=== PATIENT | female | born 1985 | race Caucasian/White ===

== ENCOUNTER 2016-11-25 19:57 | Emergency (ER) | payer SELFPAY ==
[2016-11-25 20:08] VITALS: BP 130/78; PULSE 73; TEMP 98.4; BMI 24.5
--- NOTE | 2016-11-25 20:29 | PDOC ---
[id number] Time Seen by Provider: 11/25/16 20:17 History Source: Patient Exam Limitations: No Limitations - History of Present Illness Initial Comments: 11/25/16 20:28 31 yr female c/o itching to vagina and burning with uriantion. Pt states she is on antibiotics for cystitis. small amount of white discharge noted today. no fever no abd pain or back pain . 11/25/16 20:38 Past History - Past Medical History Allergies/Adverse Reactions: Allergies Allergy/AdvReac Type Severity Reaction Status Date / Time No Known Allergies Allergy Verified 11/25/16 20:05 Home Medications: Ambulatory Orders NK [No Known Home Medication] 11/25/16 Asthma: No Cancer: No Cardiac Disorders: No Diabetes: No Disorders: Yes (cystitis) HTN: No Suicide Attempt (Hx): No Seizures: No Thyroid Disease: No - Immunization History Immunization Up to Date: Yes - Psycho/Social/Smoking Cessation Hx Anxiety: No Suicidal Ideation: No Smoking History: Never smoked Have you smoked in the past 12 months: No Number of Cigarettes Smoked Daily: 0 Hx Alcohol Use: No Drug/Substance Use Hx: No Substance Use Type: None Hx Substance Use Treatment: No *Physical Exam - Vital Signs Last Vital Signs Temp Pulse Resp BP Pulse Ox 98.4 F 73 18 130/78 97 11/25/16 20:06 11/25/16 20:06 11/25/16 20:06 11/25/16 20:06 11/25/16 20:06 - Physical Exam General Appearance: Yes: Nourished, Appropriately Dressed HEENT: positive: EOMI, MUKESH, Normal ENT Inspection, TMs Normal, Pharynx Normal Neck: positive: Supple. negative: Tender Respiratory/Chest: positive: Lungs Clear, Normal Breath Sounds Cardiovascular: positive: Regular Rhythm, Regular Rate Female Pelvic Exam: positive: discharge. negative: normal adnexa (white discharge no lesions ) Gastrointestinal/Abdominal: positive: Normal Bowel Sounds, Soft Lymphatic: negative: Adenopathy Musculoskeletal: positive: Normal Inspection Extremity: positive: Normal Capillary Refill, Normal Inspection, Normal Range of Motion Integumentary: positive: Normal Color, Dry, Warm Neurologic: positive: Fully Oriented, Alert, Normal Mood/Affect, Normal Response , Motor Strength 5/5 Medical Decision Making - Medical Decision Making 11/25/16 20:44 cc: vaginal itching and discharge will check urine , gc chalmaydia pt on antibiotcs for cystitis exam consistent with vaginal candidiasis will send culture treat with diflucan 11/29/16 08:25 *DC/Admit/Observation/Transfer Diagnosis at time of Disposition: Vaginal yeast infection - Discharge Dispostion Disposition: HOME Condition at time of disposition: Good - Patient Instructions Additional Instructions: drink pleanty of water eat 2-3 cups of yogurt a day avoid sexual intercourse until symptoms resolve follow with your software development specialist as needed if symptoms continue in 24 hrs then you can get over the counter Monistat-7 a cream for yeast infection
[2016-11-25] MEDS ORDERED: FLUCONAZOLE 50 MG TABLET PO ONE (20:37)
[2016-11-25 20:45] LABS: URINE APPEARANCE SLCLOUDY; URINE BILIRUBIN NEGATIVE (NEGATIVE); URINE BLOOD NEGATIVE (NEGATIVE); URINE COLOR YELLOW; URINE GLUCOSE (UA) NEGATIVE (NEGATIVE); URINE KETONE NEGATIVE (NEGATIVE); URINE LEUK ESTERASE NEGATIVE (NEGATIVE); URINE NITRITE NEGATIVE (NEGATIVE); URINE PROTEIN NEGATIVE (NEGATIVE); URINE UROBILINOGEN NEGATIVE E.U./dl (0.2-1.0)
== END 2016-11-25 21:05 | disposition home or self-care (01) ==
LOC: JERFT 19:57
DX: B37.3 Candidiasis of vulva and vagina (principal)
CPT/HCPCS: 36415; 81003; 84703; 87070; 87086; 87186; 87205; 87491; 87591; 99281-25

== ENCOUNTER 2018-11-16 22:12 | Emergency (ER) | payer SELFPAY ==
[2018-11-16 22:27] VITALS: BP 118/73; PULSE 97; TEMP 98.5; BMI 24.5
--- NOTE | 2018-11-16 22:41 | PDOC ---
History of Present Illness - General Chief Complaint: Cold Symptoms Stated Complaint: FEVER/COLD SYMPTOMS Time Seen by Provider: 11/16/18 22:36 - History of Present Illness Initial Comments: 11/16/18 22:38 33-year-old female presents for evaluation of cold-like symptoms along with fever chills night sweats cold-like symptoms for 1 month systemic symptoms for 2 days Past History - Past Medical History Allergies/Adverse Reactions: Allergies Allergy/AdvReac Type Severity Reaction Status Date / Time No Known Allergies Allergy Verified 11/25/16 20:05 Home Medications: Ambulatory Orders Amox-Tr/K Cl [Augmentin - 875Mg Tablet] 1 tab PO BID #20 tablet 11/16/18 Budesonide [Rhinocort Allergy] 1 spray NS ONCE #1 spray.pump 11/16/18 Asthma: No Cancer: No Cardiac Disorders: No CVA: No COPD: No CHF: No DVT: No Diabetes: No Disorders: Yes (cystitis) HTN: No Seizures: No Thyroid Disease: No - Surgical History Gastric Stapling: No - Immunization History Immunization Up to Date: Yes - Suicide/Smoking/Psychosocial Hx Smoking History: Never smoked Have you smoked in the past 12 months: No Number of Cigarettes Smoked Daily: 0 Information on smoking cessation initiated: No Hx Alcohol Use: No Drug/Substance Use Hx: No Substance Use Type: None Hx Substance Use Treatment: No Review of Systems - Review of Systems Constitutional: Yes: See HPI, Chills, Fever, Malaise, Night Sweats HEENTM: Yes: Nose Pain, Nose Congestion Respiratory: Yes: Cough *Physical Exam - Vital Signs Last Vital Signs Temp Pulse Resp BP Pulse Ox 98.5 F 97 H 20 118/73 100 11/16/18 22:24 11/16/18 22:24 11/16/18 22:24 11/16/18 22:24 11/16/18 22:24 - Physical Exam Comments: 11/16/18 22:39 HEAD: NC/AT tender frontal sinuses EYES: Conjuntiva clear Ears: Canals and TM's normal NOSE: Clear discharge and injected turbinates THROAT: Moist mucous membrances, oral pharanx clear, uvula midline NECK: Supple without adenopathy CARDIAC: S1 S2 LUNGS: CTA Full and Equal breath sounds ABDOMEN: Soft NT ND MS: Full ROM in all joints without edema NEUROLOGIC: No gross sensory or motor deficits, NVID SKIN: Normal color and temperature no lesions or rashes Moderate Sedation - Procedure Monitoring Vital Signs: Procedure Monitoring Vital Signs Temperature 98.5 F 11/16/18 22:24 Pulse Rate 97 H 11/16/18 22:24 Respiratory Rate 20 11/16/18 22:24 Blood Pressure 118/73 11/16/18 22:24 O2 Sat by Pulse Oximetry (%) 100 11/16/18 22:24 *DC/Admit/Observation/Transfer Diagnosis at time of Disposition: Sinusitis - Discharge Dispostion Disposition: HOME Condition at time of disposition: Stable Decision to Admit order: No - Prescriptions Prescriptions: Amox-Tr/K Cl [Augmentin - 875Mg Tablet] 1 tab PO BID #20 tablet Budesonide [Rhinocort Allergy] 1 spray NS ONCE #1 spray.pump - Referrals Referrals: Daniella Kirkpatrick MD [Primary Care Provider] - Panfilo Ellington MD [Staff Physician] - - Patient Instructions Printed Discharge Instructions: Sinusitis, DI for Sinusitis Additional Instructions: Return to the emergency room should symptoms worsen or go unresolved, follow-up with ear nose and throat doctor in 1-2 days for further evaluation and treatment options. Please take the antibiotics in the nasal spray as directed. Continue with Tylenol and Motrin for pain and fever. - Post Discharge Activity
== END 2018-11-16 22:45 | disposition home or self-care (01) ==
LOC: JERFT 22:12
DX: J32.8 Other chronic sinusitis (principal)
CPT/HCPCS: 99281-25

== ENCOUNTER 2018-11-22 21:46 | Emergency (ER) | payer SELFPAY ==
[2018-11-22 22:22] VITALS: BMI 28.3
--- NOTE | 2018-11-22 22:39 | PDOC ---
History of Present Illness <Cee Tse - Last Filed: 11/23/18 00:26> - General History Source: Patient Exam Limitations: No Limitations - History of Present Illness Initial Comments: 11/22/18 22:38 Patient is a 33 year old female with no pmhx c/o sorethroat, CARDONA, bodyache, joint pain, hot and cold chills, fatigue x 1 month. States the CARDONA are intermittent daily which 8/10 throbbing in the occiput which goes away with tylenol and motrin. Has body pain mostly in th joints and has hot and cold chills. She takes the temp it is 99-100. She was seen in the ED 8 days ago and was given antibx for sinusitis, but states her symptoms are still the same. Over the past 2 days the sore throat is worse and is having difficult swallowing. Last dose of Tylenol was 11 pm. PMD: Jolene PMHX: as above PSOCHX: neg cig, durg, etoh ALL: NKDA GENERAL/CONSTITUTIONAL: (+) fever or chills. (+) weakness. No weight change.] HEAD, EYES, EARS, NOSE AND THROAT: [No change in vision. No ear pain or discharge. (+) sore throat.] CARDIOVASCULAR: [No chest pain or shortness of breath.] RESPIRATORY: [No cough, wheezing, or hemoptysis.] GASTROINTESTINAL: [No nausea, vomiting, diarrhea or constipation. No rectal bleeding.] GENITOURINARY: [No dysuria, frequency, or change in urination.] MUSCULOSKELETAL: (+) joint or muscle swelling or pain. No neck or back pain.] SKIN AND BREASTS: [No rash or easy bruising.] NEUROLOGIC: (+) headache, (-) vertigo, loss of consciousness, or loss of sensation.] PSYCHIATRIC: [No depression or anxiety.] ENDOCRINE: [No increased thirst. No abnormal weight change.] HEMATOLOGIC/LYMPHATIC: [No anemia, easy bleeding, or history of blood clots.] ALLERGIC/IMMUNOLOGIC: [No hives or skin allergy. No latex allergy.] GENERAL: [The patient is awake, alert, and fully oriented, in mild distress.] HEAD: [Normal with no signs of trauma.] EYES: [Pupils equal, round and reactive to light, extraocular movements intact, sclera anicteric, conjunctiva clear.] ENT: [Ears normal, nares patent, oropharynx clear without exudates, no swelling Moist mucous membranes.] NECK: [Normal range of motion, supple without lymphadenopathy, JVD, or masses.] LUNGS: [Breath sounds equal, clear to auscultation bilaterally. No wheezes, and no crackles.] HEART: [Regular rate and rhythm, normal S1 and S2 without murmur, rub.] ABDOMEN: [Soft, nontender, normoactive bowel sounds. No guarding, no rebound. No masses.] EXTREMITIES: [Normal range of motion, no edema. No clubbing or cyanosis. No cords, erythema, or tenderness.] NEUROLOGICAL: [Cranial nerves II through XII grossly intact. Normal speech, normal gait.] PSYCH: [Normal mood, normal affect.] SKIN: [Warm, Dry, normal turgor, no rashes or lesions noted.] <Merna De - Last Filed: 11/23/18 05:38> - General Chief Complaint: Cold Symptoms Stated Complaint: THROAT PAIN/ FEVER Past History <Cee Tse - Last Filed: 11/23/18 00:26> - Past Medical History Asthma: No Cancer: No Cardiac Disorders: No CVA: No COPD: No CHF: No DVT: No Diabetes: No Disorders: Yes (cystitis) HTN: No Seizures: No Thyroid Disease: No - Surgical History Gastric Stapling: No - Immunization History Immunization Up to Date: Yes - Suicide/Smoking/Psychosocial Hx Smoking History: Never smoked Have you smoked in the past 12 months: No Number of Cigarettes Smoked Daily: 0 Information on smoking cessation initiated: No Hx Alcohol Use: No Drug/Substance Use Hx: No Substance Use Type: None Hx Substance Use Treatment: No <Merna eD - Last Filed: 11/23/18 05:38> - Past Medical History Allergies/Adverse Reactions: Allergies Allergy/AdvReac Type Severity Reaction Status Date / Time No Known Allergies Allergy Verified 11/25/16 20:05 Home Medications: Ambulatory Orders Amox-Tr/K Cl [Augmentin - 875Mg Tablet] 1 tab PO BID #20 tablet 11/16/18 Budesonide [Rhinocort Allergy] 1 spray NS ONCE #1 spray.pump 11/16/18 *Physical Exam - Vital Signs Last Vital Signs Temp Pulse Resp BP Pulse Ox 98.1 F 107 H 20 136/65 100 11/22/18 22:20 11/22/18 22:20 11/22/18 22:20 11/22/18 22:20 11/22/18 22:20 <Cee Tse - Last Filed: 11/23/18 00:26> - Vital Signs Last Vital Signs Temp Pulse Resp BP Pulse Ox 98.1 F 107 H 20 136/65 100 11/22/18 22:20 11/22/18 22:20 11/22/18 22:20 11/22/18 22:20 11/22/18 22:20 <Merna De - Last Filed: 11/23/18 05:38> Moderate Sedation - Procedure Monitoring Vital Signs: Procedure Monitoring Vital Signs Temperature 98.1 F 11/22/18 22:20 Pulse Rate 107 H 11/22/18 22:20 Respiratory Rate 20 11/22/18 22:20 Blood Pressure 136/65 11/22/18 22:20 O2 Sat by Pulse Oximetry (%) 100 11/22/18 22:20 <Cee Tse - Last Filed: 11/23/18 00:26> - Procedure Monitoring Vital Signs: Procedure Monitoring Vital Signs Temperature 98.1 F 11/22/18 22:20 Pulse Rate 107 H 11/22/18 22:20 Respiratory Rate 20 11/22/18 22:20 Blood Pressure 136/65 11/22/18 22:20 O2 Sat by Pulse Oximetry (%) 100 11/22/18 22:20 <Merna De - Last Filed: 11/23/18 05:38> ED Treatment Course - LABORATORY CBC & Chemistry Diagram: 11/22/18 22:50 11/22/18 22:50 - ADDITIONAL ORDERS Additional order review: Laboratory Results 11/22/18 11/22/18 11/22/18 22:50 22:50 22:50 Sodium 137 Potassium 3.8 Chloride 105 Carbon Dioxide 25 Anion Gap 7 L BUN 8 Creatinine 0.4 L Creat Clearance w eGFR > 60 Random Glucose 100 Calcium 8.9 Total Bilirubin 0.5 AST 25 ALT 41 Alkaline Phosphatase 114 C-Reactive Protein 7.9 H Total Protein 7.8 Albumin 3.2 L Urine Color Straw Urine Appearance Clear Urine pH 6.0 Ur Specific [place] 1.005 L Urine Protein Negative Urine Glucose (UA) Negative Urine Ketones Negative Urine Blood 3+ H Urine Nitrite Negative Urine Bilirubin Negative Urine Urobilinogen Negative Ur Leukocyte Esterase Negative Urine WBC (Auto) 1 Urine RBC (Auto) 16 Ur Epithelial Cells Rare Urine Mucus Rare 11/22/18 22:50 RBC 3.56 L MCV 90.4 MCHC 35.0 RDW 12.2 D MPV 8.5 D Neutrophils % 69.7 Lymphocytes % 21.0 D Monocytes % 7.6 Eosinophils % 0.9 Basophils % 0.8 <Cee Tse - Last Filed: 11/23/18 00:26> - LABORATORY CBC & Chemistry Diagram: 11/22/18 22:50 11/22/18 22:50 <Merna De - Last Filed: 11/23/18 05:38> Medical Decision Making - Medical Decision Making 11/22/18 22:38 Patient is a 33 year old female with no pmhx c/o sorethroat, CARDONA, bodyache, joint pain, hot and cold chills, fatigue x 1 month. States the CARDONA are intermittent daily which 8/10 throbbing in the occiput which goes away with tylenol and motrin. Has body pain mostly in th joints and has hot and cold chills. She take the temp it is 99-100. She was seen in the ED 8 days ago and was given antibx but states her symptoms are still the same. Over the past 2 days the sorethroat is worse and is having difficult swallowing. Last dose of Tylenol was 11 pm. Patient's symptoms seems to be consistent with some inflammatory process she has been on antibiotics with no relief of symptoms. Will do lab workinclude CBC, comp, CRP, ESR, influenza, rapid strep, UA. Labs reviewed no acute findings except for elevated CRP and ESR. Will refer patient to have [facility] care and rheumatology for further workup. Selected Entries 11/23/18 01:02 Temperature 98.9 F Pulse Rate [ 96 H Left Radial] Respiratory 18 Rate Blood Pressure 115/64 [Left Arm] O2 Sat by Pulse 100 Oximetry (%) I discussed the physical exam findings, ancillary test results and final diagnoses with the patient. I answered all of the patient's questions. The patient was satisfied with the care received and felt comfortable with the discharge plan and treatment plan. The Patient agrees to follow up with the primary care physician within 24-72 hours. 11/23/18 05:38 <Merna De - Last Filed: 11/23/18 05:38> *DC/Admit/Observation/Transfer <Cee Tse - Last Filed: 11/23/18 00:26> <Merna De - Last Filed: 11/23/18 05:38> Diagnosis at time of Disposition: Myalgia Headache Qualifiers: Headache type: unspecified Headache chronicity pattern: unspecified pattern Intractability: not intractable Qualified Code(s): R51 - Headache Arthralgia Qualifiers: Joint pain location: unspecified Qualified Code(s): M25.50 - Pain in unspecified joint - Discharge Dispostion Disposition: HOME Condition at time of disposition: Stable - Referrals Referrals: Daniella Kirkpatrick MD [Primary Care Provider] - Micheal Ulloa MD [Staff Physician] - Lo Jesus MD [Staff Physician] - Cooper Jesus [Non Staff, Medical] - - Patient Instructions Printed Discharge Instructions: DI for Arthralgia, DI for Headache Additional Instructions: Your Discharge Instructions: You must call primary care physician within 24 hours to arrange follow-up. Return to the Emergency Department with any new, persistent or worsening symptoms, for fever, chills, SOB, dizziness or any other concerning changes that may occur. Rheumatology follow give, call for appointment - Post Discharge Activity
[2018-11-22 23:15] LABS: BASO % 0.8 % (0-2.0); EOS % 0.9 % (0-4.5); HEMATOCRIT 32.2 % (32.4-45.2); HEMOGLOBIN 11.3 GM/dL (10.7-15.3); MCH 31.7 pg (25.7-33.7); MEAN CELL VOLUME 90.4 fl (80-96); MEAN PLT VOLUME 8.5 fl (7.5-11.1); MONO % 7.6 % (3.8-10.2); NEUT % 69.7 % (42.8-82.8); PLATELET COUNT 388 K/MM3 (134-434); RBC 3.56 M/mm3 (3.60-5.2); RDW 12.2 % (11.6-15.6); URINE APPEARANCE CLEAR; URINE BILIRUBIN NEGATIVE (<2.0 mg/dL); URINE COLOR STRAW; URINE GLUCOSE (UA) NEGATIVE (NEGATIVE); URINE KETONE NEGATIVE (NEGATIVE); URINE LEUK ESTERASE NEGATIVE (NEGATIVE); URINE NITRITE NEGATIVE (NEGATIVE); URINE PROTEIN NEGATIVE (NEGATIVE); URINE UROBILINOGEN NEGATIVE mg/dL (0.2-1.0); WHITE BLOOD COUNT 8.5 K/mm3 (4.0-10.0)
[2018-11-22 23:25] LABS: EPI CELLS RARE /HPF (FEW); URINE MUCUS RARE
[2018-11-22 23:40] LABS: ALBUMIN 3.2 g/dl (3.4-5.0); ALK PHOS 114 U/L (45-117); ANION GAP 7 MMOL/L (8-16); BILIRUBIN,TOTAL 0.5 mg/dL (0.2-1); BLOOD UREA NITROGEN 8 mg/dL (7-18); CALCIUM 8.9 mg/dL (8.5-10.1); CHLORIDE 105 mmol/L (98-107); CO2 25 mmol/L (21-32); CREATININE 0.4 mg/dL (0.55-1.3); GLUCOSE,RANDOM 100 mg/dL (74-106); POTASSIUM 3.8 mmol/L (3.5-5.1); SGOT/AST 25 U/L (15-37); SGPT/ALT 41 U/L (13-61); SODIUM 137 mmol/L (136-145); TOT PROT 7.8 g/dl (6.4-8.2)
[2018-11-23] MEDS ORDERED: IBUPROFEN 600 MG TABLET (FP) PO ONE ×2 (00:56→01:00)
[2018-11-23 01:03] VITALS: BP 115/64; PULSE 96; TEMP 98.9
== END 2018-11-23 01:03 | disposition home or self-care (01) ==
LOC: JER 21:46 → JERFT 21:46 → JER 11-23 01:03
DX: R51 Headache (principal); M25.50 Pain in unspecified joint; R53.83 Other fatigue
CPT/HCPCS: 36415; 80053; 81003; 81015; 85025; 85651; 86140; 86308; 86618; 87070; 87804; 87880; 99281-25

== ENCOUNTER 2019-01-03 22:13 | Emergency (ER) | payer OTHER ==
[2019-01-03 22:17] VITALS: BP 110/60; PULSE 60; TEMP 98.6; BMI 23.4
--- NOTE | 2019-01-03 23:15 | PDOC ---
History of Present Illness - General Chief Complaint: Sore Throat Stated Complaint: THROAT PAIN Time Seen by Provider: 01/03/19 22:27 History Source: Patient Exam Limitations: No Limitations - History of Present Illness Initial Comments: 01/03/19 23:18 Patient is a 33 year old female with no pmhx c/o sore throat since October. She was seen in the ED x 2 and treated with antibx on the initial visit. She was seen again and was worked up which was neg and sent back to pmd and Rhumatology for elevated crp and esr. She states she follow up with pmd and had abnl Thyroid test and was give a Rx for Nuclear imaging study of the thyroid. She is here today for that Nuclear imaging study. Patient was told that this was not a test we can do in the ED. She is requesting to the bill for today's visit be cancelled. PMD: Dr. Hutton GENERAL/CONSTITUTIONAL: No fever or chills. No weakness. No weight change. HEAD, EYES, EARS, NOSE AND THROAT: No change in vision. No ear pain or discharge. No sore throat. CARDIOVASCULAR: No chest pain or shortness of breath. RESPIRATORY: No cough, wheezing, or hemoptysis. MUSCULOSKELETAL: No joint or muscle swelling or pain. No neck or back pain. SKIN AND BREASTS: No rash or easy bruising. NEUROLOGIC: No headache, vertigo, loss of consciousness, or loss of sensation. GENERAL: The patient is awake, alert, and fully oriented, in no acute distress HEAD: Normal with no signs of trauma. EYES: Pupils equal, round and reactive, sclera anicteric, conjunctiva clear. LUNGS: No wheezes audible EXTREMITIES: Normal range of motion, no edema. NEUROLOGICAL: Cranial nerves II through XII grossly intact. Normal speech, normal gait. SKIN: Warm, Dry, normal turgor, no rashes or lesions noted. Past History - Past Medical History Allergies/Adverse Reactions: Allergies Allergy/AdvReac Type Severity Reaction Status Date / Time No Known Allergies Allergy Verified 01/03/19 22:17 Home Medications: Ambulatory Orders Amox-Tr/K Cl [Augmentin - 875Mg Tablet] 1 tab PO BID #20 tablet 11/16/18 Budesonide [Rhinocort Allergy] 1 spray NS ONCE #1 spray.pump 11/16/18 Asthma: No Cancer: No Cardiac Disorders: No CVA: No COPD: No CHF: No DVT: No Diabetes: No Disorders: Yes (cystitis) HTN: No Seizures: No Thyroid Disease: Yes - Surgical History Gastric Stapling: No - Immunization History Immunization Up to Date: Yes - Suicide/Smoking/Psychosocial Hx Smoking History: Never smoked Have you smoked in the past 12 months: No Number of Cigarettes Smoked Daily: 0 Hx Alcohol Use: No Drug/Substance Use Hx: No Substance Use Type: None Hx Substance Use Treatment: No *Physical Exam - Vital Signs Last Vital Signs Temp Pulse Resp BP Pulse Ox 98.6 F 60 18 110/60 99 01/03/19 22:15 01/03/19 22:15 01/03/19 22:15 01/03/19 22:15 01/03/19 22:15 Medical Decision Making - Medical Decision Making 01/03/19 23:18 Patient is a 33 year old female with no pmhx c/o sore throat since [facility]. She was seen in the ED x 2 and treated with antibx on the initial visit. She was seen again and was worked up which was neg and sent back to pmd and Rhumatology for elevated crp and esr. She states she follow up with pmd and had abnl Thyroid test and was give a Rx for Nuclear imaging study of the thyroid. She is here today for that Nuclear imaging study. Patient was told that this was not a test we can do in the ED. She is requesting to the bill for today's visit be cancelled. No workup ordered for the patient will need to follow up with primary care doctor and to radiology for nuclear study. I discussed the physical exam findings, ancillary test results and final diagnoses with the patient. I answered all of the patient's questions. The patient was satisfied with the care received and felt comfortable with the discharge plan and treatment plan. The Patient agrees to follow up with the primary care physician within 24-72 hours. *DC/Admit/Observation/Transfer Diagnosis at time of Disposition: Throat pain - Discharge Dispostion Disposition: HOME Condition at time of disposition: Stable - Referrals Referrals: Jus Sargent [Primary Care Provider] - - Patient Instructions Printed Discharge Instructions: DI for Viral Pharyngitis Additional Instructions: Your Discharge Instructions: You must call primary care physician within 24 hours to arrange follow-up. Return to the Emergency Department with any new, persistent or worsening symptoms, for fever, chills, SOB, dizziness or any other concerning changes that may occur. Must follow-up with your primary care doctor and the radiology department to schedule for nuclear thyroid testing. - Post Discharge Activity
== END 2019-01-04 00:14 | disposition home or self-care (01) ==
LOC: JER 22:13
DX: R07.0 Pain in throat (principal)
CPT/HCPCS: 99281-25

== ENCOUNTER 2019-08-02 10:26 | Emergency (ER) | payer OTHER ==
[2019-08-02 10:38] VITALS: BP 102/57; PULSE 50; TEMP 98.2; BMI 26.0
[2019-08-02 12:30] LABS: PH,URINE 5.5 (5.0-8.0); URINE APPEARANCE Turbid; URINE BILIRUBIN 1+ (NEGATIVE); URINE COLOR Red; URINE GLUCOSE (UA) Negative (NEGATIVE); URINE KETONE Negative (NEGATIVE); URINE LEUK ESTERASE 3+ (NEGATIVE); URINE NITRITE Positive (NEGATIVE); URINE PROTEIN 3+ (NEGATIVE); URINE UROBILINOGEN 0.2 mg/dL (0.2-1.0)
--- NOTE | 2019-08-02 12:38 | PDOC ---
Documentation entered by Adan Patel SCRIBE, acting as scribe for Josh Calloway MD. Josh Calloway MD: This documentation has been prepared by the Jorge howell Daniel, SCRIBE, under my direction and personally reviewed by me in its entirety. I confirm that the documentation accurately reflects all work, treatment, procedures, and medical decision making performed by me. History of Present Illness - General Chief Complaint: Pain Stated Complaint: LWR ABD PAIN Time Seen by Provider: 08/02/19 11:34 History Source: Patient Exam Limitations: No Limitations - History of Present Illness Initial Comments: 08/02/19 11:44 The patient is a 33 year old female with no past medical history here today for evaluation of dysuria. The patient reports that since her period started on friday (07/30/19) she has had dysuria, urinary urgency, urinary frequency, and right suprapubic pain. She also notes chills. She states that her periods have been regular, that her is her only sexual partner, and that she had a similar episode a few years ago. She denies the possibility of being stating that she has an IUD. Patient denies headache, lightheadedness. Denies fever, chills. Denies chest pain, shortness of breath. Denies nausea, vomiting, diarrhea, abdominal pain. Allergies: NKA Past History - Past Medical History Allergies/Adverse Reactions: Allergies Allergy/AdvReac Type Severity Reaction Status Date / Time No Known Allergies Allergy Verified 08/02/19 10:34 Home Medications: Ambulatory Orders Naproxen Sodium [Midol] 2 tab PO ASDIR 08/02/19 Nitrofurantoin Monohyd/M-Cryst [Macrobid -] 100 mg PO BID #14 capsule 08/02/19 Asthma: No Cancer: No Cardiac Disorders: No CVA: No COPD: No CHF: No DVT: No Diabetes: No Disorders: Yes (cystitis) HTN: No Seizures: No Thyroid Disease: Yes - Surgical History Gastric Stapling: No - Immunization History Immunization Up to Date: Yes - Psycho Social/Smoking Cessation Hx Smoking History: Never smoked Have you smoked in the past 12 months: No Number of Cigarettes Smoked Daily: 0 Hx Alcohol Use: No Drug/Substance Use Hx: No Substance Use Type: None Hx Substance Use Treatment: No Review of Systems - Review of Systems Able to Perform ROS?: Yes Comments:: 08/02/19 11:44 CONSTITUTIONAL: No reported: Fever, Chills, Diaphoresis, Generalized Weakness, Malaise, Loss of Appetite CARDIOVASCULAR: No reported: Chest Pain, Syncope, Palpitations, Irregular Heart Rate, Lightheadedness, Peripheral Edema RESPIRATORY: No reported: Cough, Shortness of Breath, SOB with Exertion, Orthopnea, Wheezing , Stridor, Hemoptysis GASTROINTESTINAL: No reported: Abdominal pain, Abdominal Distension, Nausea, Vomiting, Diarrhea, Constipation, Melena, Hematochezia GENITOURINARY: +dysuria, urgency, frequency. +right suprapubic pain No reported: Hesitancy, Flank Pain, Genital Pain MUSCULOSKELETAL: No reported: Myalgia, Arthralgia, Joint Swelling, Back pain, Neck Pain SKIN: No reported: Rash, Itching, Pallor *Physical Exam - Vital Signs Last Vital Signs Temp Pulse Resp BP Pulse Ox 98.2 F 50 L 17 102/57 L 99 08/02/19 10:34 08/02/19 10:34 08/02/19 10:34 08/02/19 10:34 08/02/19 10:34 - Physical Exam Comments: 08/02/19 12:38 GENERAL: The patient is awake, alert, and fully oriented, Nontoxic - in no acute distress. HEAD: Normocephalic, atraumatic. LUNGS: Breath sounds equal, clear to auscultation bilaterally. No wheezes, no rhonchi, no rales. HEART: Regular rate and rhythm, normal S1 and S2 without murmur, rub or gallop. ABDOMEN: Soft, mild suprapubic tendenes, no cva tenderness=, No guarding, no rebound. PSYCH: Normal mood, normal affect. SKIN: Warm, Dry, normal turgor, 8 Medical Decision Making - Medical Decision Making 08/02/19 11:42 33 F presents with dysuria for several days. also endorses lower abd crapming c/ w her current menses. no systemic infectious complints no signs of pyelo will obtin Ua.ucx, will erasess 08/02/19 12:37 ua cw uti will dc with macrobid retur nprecautions were discussed I discussed the physical exam findings, ancillary test results and final diagnoses with the patient. I answered all of the patient's questions. The patient was satisfied with the care received and felt comfortable with the discharge plan and treatment plan. The patient will call their primary care physician within 24 hours to arrange follow-up and will return to the Emergency Department with any new, persistent or worsening symptoms. Discharge - Discharge Information Problems reviewed: Yes Clinical Impression/Diagnosis: Cystitis Condition: Stable Disposition: HOME - Admission No - Additional Discharge Information Prescriptions: Nitrofurantoin Monohyd/M-Cryst [Macrobid -] 100 mg PO BID #14 capsule - Follow up/Referral Referrals: [facility] [place] [Provider Group] - Patient Discharge Instructions Patient Printed Discharge Instructions: DI for Acute Cystitis Additional Instructions: Regrese al departamento de emergencias de inmediato con CUALQUIER sntoma nuevo , persistente o que empeore, incluyendo fiebre o dolor de espalda. [place] el antibitico segn lo prescrito. DEBE llamar y hacer un seguimiento con bey mdico norm 2-3 higgins para cassidy evaluacin adicional de amanda sntomas. Los resultados fueron discutidos con usted. Asegrese de que bey mdico revise los resultados de bey evaluacin de emergencia. Bey visita al Departamento de Emergencia no est completa sin un seguimiento con bey mdico. ======= Return to the emergency department immediately with ANY new, persistent or worsening symptoms including fever or back pain. Take the antibiotic as prescribed You MUST call and follow up with your doctor tin 2-3 days for further evaluation of your symptoms. Results were discussed with you. Please make sure your doctor reviews the results of your emergency evaluation. Your Emergency Department visit is not complete without a follow up with your doctor. Print Language: CHINESE - Post Discharge Activity
[2019-08-02 15:05] LABS: EPI CELLS 20.8 /HPF (0-5/HPF); HYALINE CASTS 138 /lpf (0-8); URINE BACTERIA 2+ /hpf (NEGATIVE); URINE RBC 1855.8 /hpf (0-4); URINE WBC 326.4 /hpf (0-5); YEAST MANY (NEGATIVE)
== END 2019-08-02 12:40 | disposition home or self-care (01) ==
LOC: JER 10:26
DX: N30.00 Acute cystitis without hematuria (principal)
CPT/HCPCS: 81003; 84703; 87086; 99282-25

== ENCOUNTER 2019-11-02 09:23 | Emergency (ER) | payer OTHER ==
[2019-11-02 09:32] VITALS: TEMP 98.1; BMI 26.2
[2019-11-02 10:50] LABS: EPI CELLS 6.8 /HPF (0-5/HPF); HYALINE CASTS 3 /lpf (0-8); URINE APPEARANCE TURBID; URINE BACTERIA 226.8 /hpf (NEGATIVE); URINE BILIRUBIN NEGATIVE (NEGATIVE); URINE COLOR YELLOW; URINE GLUCOSE (UA) NEGATIVE (NEGATIVE); URINE KETONE NEGATIVE (NEGATIVE); URINE LEUK ESTERASE 2+ (NEGATIVE); URINE NITRITE NEGATIVE (NEGATIVE); URINE PROTEIN 1+ (NEGATIVE); URINE RBC 25 /hpf (0-4); URINE UROBILINOGEN 0.2 mg/dL (0.2-1.0); URINE WBC 1111 /hpf (0-5)
[2019-11-02] MEDS ORDERED: IBUPROFEN 600 MG TABLET (FP) PO ONE ×2 (10:53→10:57)
--- NOTE | 2019-11-02 11:33 | PDOC ---
History of Present Illness - General Chief Complaint: Urinary Problem Stated Complaint: URINARY PROBLEM Time Seen by Provider: 11/02/19 09:31 History Source: Patient Exam Limitations: No Limitations Past History - Travel Traveled outside of the country in the last 30 days: No Close contact w/someone who was outside of country & ill: No - Past Medical History Allergies/Adverse Reactions: Allergies Allergy/AdvReac Type Severity Reaction Status Date / Time No Known Allergies Allergy Verified 11/02/19 09:29 Home Medications: Ambulatory Orders Cephalexin Monohydrate [Keflex -] 500 mg PO BID #14 capsule 11/02/19 Erythromycin 0.5% Eye Ointment [Erythromycin 0.5% Eye Ointment -] 1 applic OU BID #1 tube 11/02/19 Asthma: No Cancer: No Cardiac Disorders: No CVA: No COPD: No CHF: No DVT: No Diabetes: No Disorders: Yes (cystitis) HTN: No Seizures: No Thyroid Disease: Yes - Surgical History Gastric Stapling: No - Immunization History Immunization Up to Date: Yes - Psycho Social/Smoking Cessation Hx Smoking History: Never smoked Have you smoked in the past 12 months: No Number of Cigarettes Smoked Daily: 0 Hx Alcohol Use: No Drug/Substance Use Hx: No Substance Use Type: None Hx Substance Use Treatment: No Review of Systems - Review of Systems Able to Perform ROS?: Yes Comments:: 11/02/19 14:29 CONSTITUTIONAL: Absent: fever, chills, diaphoresis, generalized weakness, malaise, loss of appetite HEENT: Present: sore throat, eye redness Absent: rhinorrhea, nasal congestion, throat pain, throat swelling, difficulty swallowing, mouth swelling, ear pain, eye pain, visual Changes CARDIOVASCULAR: Absent: chest pain, loss of consciousness, palpitations, irregular heart rate, peripheral edema RESPIRATORY: Absent: cough, shortness of breath, dyspnea with exertion, orthopnea, wheezing, stridor, hemoptysis GASTROINTESTINAL: Absent: abdominal pain, abdominal distension, nausea, vomiting, diarrhea, constipation, melena, hematochezia GENITOURINARY: Present: dysuria Absent: frequency, urgency, hesitancy, hematuria, flank pain, genital pain MUSCULOSKELETAL: Absent: myalgia, arthralgia, joint swelling SKIN: Absent: rash, itching, pallor HEMATOLOGIC/IMMUNOLOGIC: Absent: easy bleeding, easy bruising, lymphadenopathy, frequent infections ENDOCRINE: Absent: unexplained weight gain, unexplained weight loss, heat intolerance, cold intolerance NEUROLOGIC: Absent: headache, focal weakness or paresthesias, dizziness, unsteady gait, seizure, mental status changes, bladder or bowel incontinence PSYCHIATRIC: Absent: anxiety, depression, suicidal or homicidal ideation, hallucinations. Is the patient limited Congolese proficient: No *Physical Exam - Vital Signs Last Vital Signs Temp Pulse Resp BP Pulse Ox 98.1 F 50 L 16 104/43 L 9 L 11/02/19 09:30 11/02/19 09:30 11/02/19 09:30 11/02/19 09:30 11/02/19 09:30 - Physical Exam 11/02/19 14:59 GENERAL: Well developed, well nourished. Awake and alert. No acute distress. HEENT: Normocephalic, atraumatic. PERRLA, EOMI. No conjunctival pallor. Conjunctiva are pink b/l. Sclera are non-icteric. Moist mucous membranes. Oropharynx is clear. NECK: Supple. Full ROM. No JVD. Carotid pulses 2+ and symmetric, without bruits. No thyromegaly. No lymphadenopathy. CARDIOVASCULAR: Regular rate and rhythm. No murmurs, rubs, or gallops. Distal pulses are 2+ and symmetric. PULMONARY: No evidence of respiratory distress. Lungs clear to auscultation bilaterally. No wheezing, rales or rhonchi. ABDOMINAL: Suprapubic discomfort. Soft. Non-tender. Non-distended. No rebound or guarding. No organomegaly. Normoactive bowel sounds. MUSCULOSKELETAL Normal range of motion at all joints. No bony deformities or tenderness. No CVA tenderness. EXTREMITIES: No cyanosis. No clubbing. No edema. No calf tenderness. SKIN: Warm and dry. Normal capillary refill. No rashes. No jaundice. NEUROLOGICAL: Alert, awake, appropriate. Cranial nerves 2-12 intact. No deficits to light touch and temperature in face, upper extremities and lower extremities. No motor deficits in the in face, upper extremities and lower extremities. Normoreflexic in the upper and lower extremities. Normal speech. Toes are down-going bilaterally. Gait is normal without ataxia. PSYCHIATRIC: Cooperative. Good eye contact. Appropriate mood and affect. 11/04/19 17:16 ED Treatment Course - ADDITIONAL ORDERS Additional order review: Laboratory Results 11/02/19 11/02/19 10:00 10:00 Urine Color Yellow Urine Appearance Turbid Urine pH 5.0 Ur Specific [place] 1.026 Urine Protein 1+ H Urine Glucose (UA) Negative Urine Ketones Negative Urine Blood 2+ H Urine Nitrite Negative Urine Bilirubin Negative Urine Urobilinogen 0.2 Ur Leukocyte Esterase 2+ H Urine WBC (Auto) 1111 Urine RBC (Auto) 25 Urine Casts (Auto) 3 U Epithel Cells (Auto) 6.8 Urine Bacteria (Auto) 226.8 Urine HCG, Qual Negative - Medications Given in the ED: ED Medications Discontinued Medications Generic Name Dose Route Start Last Admin Trade Name Claribel PRN Reason Stop Dose Admin Ibuprofen 600 mg 11/02/19 10:53 11/02/19 10:58 Motrin - PO 11/02/19 10:54 600 mg ONCE ONE Administration Medical Decision Making - Medical Decision Making 11/02/19 14:01 the patient is a 34-year-old female with no past medical history who presents to the ER for multiple complaints today. That she has been having urinary dis comfort and noticed blood in her urine today. She states that she is going more frequently. She also notes that her throat is sore and she is having drainage from both of her eyes. Denies fevers, chills, nausea, vomiting, diarrhea, back pain, cough. A/P: UTI, conjunctivitis, pharyngitis Vital signs are stable. Oxygen at 99 percent on room air. On exam urine shows 1+ leuk, 1+ blood with over 100 bacteria. We will treat with Keflex. Culture sent. Rapid strep test is negative. Likely viral pharyngitis Patient does have clinical pinkeye. We will treat with erythromycin ointment Discharge home with primary care follow-up. I discussed the physical exam findings, ancillary test results and final diagnoses with the patient. I answered all of the patient's questions. The patient was satisfied with the care received and felt comfortable with the discharge plan and treatment plan. The Patient agrees to follow up with the primary care physician/specialist within 24-72 hours. Return precautions were given. Discharge - Discharge Information Problems reviewed: Yes Clinical Impression/Diagnosis: Sore throat UTI (urinary tract infection) Qualifiers: Urinary tract infection type: acute cystitis Hematuria presence: with hematuria Qualified Code(s): N30.01 - Acute cystitis with hematuria Conjunctivitis Qualifiers: Conjunctivitis type: unspecified Laterality: bilateral Qualified Code(s): H10.9 - Unspecified conjunctivitis Condition: Stable Disposition: HOME - Admission No - Additional Discharge Information Prescriptions: Cephalexin Monohydrate [Keflex -] 500 mg PO BID #14 capsule Erythromycin 0.5% Eye Ointment [Erythromycin 0.5% Eye Ointment -] 1 applic OU BID #1 tube - Follow up/Referral Referrals: Xavi Holden MD [Staff Physician] - - Patient Discharge Instructions Patient Printed Discharge Instructions: DI for Urinary Tract Infection (UTI) Additional Instructions: You have a urinary tract infection. This caused by bacteria. Please drink plenty of fluids. Take your antibiotics as prescribed. Finish the entire dose even if you feel better. Please follow up with your primary care doctor this week. Return to the emergency department if you have fevers, chills, nausea, vomiting, back pain, or have any changes in your symptoms. You have conjunctivitis. This is an eye infection. Please use erythromycin ointment twice a day to the affected eye for one week. Please wash her hands frequently Do not wear contact lenses until your infection clears Follow up with ophthalmology if her symptoms do not improve within a week. Return to the ER for visual changes, blurry vision, or any new or worsening symptoms. You have a sore throat or pharyngitis. Rapid strep testing was negative today. You may take Motrin 600 mg every 6 hours as needed for pain. Please do warm water gargles and cough drops to help with your pain. Change your toothbrush when you started feeling better. Follow-up with your primary care doctor. Return to the ER for fever, difficulty breathing, difficulty swallowing, or if you have any changes in your symptoms. - Post Discharge Activity Work/Back to School Note: Back to Work
[2019-11-02 11:34] VITALS: BP 110/56; PULSE 76
== END 2019-11-02 11:38 | disposition home or self-care (01) ==
LOC: JERFT 09:23
DX: N30.01 Acute cystitis with hematuria (principal); J02.9 Acute pharyngitis, unspecified; H10.31 Unspecified acute conjunctivitis, right eye
CPT/HCPCS: 81003; 84703; 87070; 87086; 87186; 87880; 99282-25